=== PATIENT | female | born 1950 | race Asian ===

== ENCOUNTER 2019-03-07 03:55 | Emergency (ER) | payer MEDICARE, OTHER ==
[~2019-03-07] VITALS: Ht 147.3 cm; Wt 65.3 kg
[2019-03-07] MEDS ORDERED: LORA2TAB PO (04:20)
[2019-03-07] MEDS ORDERED: IRBE150T28 PO (04:20)
[2019-03-07] MEDS ORDERED: DULO30CA2 PO (04:20)
[2019-03-07] MEDS ORDERED: CLOP75TA15 PO (04:20)
[2019-03-07] MEDS ORDERED: LEVO25TA9 PO (04:20)
[2019-03-07] MEDS ORDERED: AMLO5TAB9 PO (04:20)
[2019-03-07] MEDS ORDERED: ASPI-605 PO (04:20)
[2019-03-07] MEDS ORDERED: ROSU20TA2 PO (04:20)
[2019-03-07] MEDS ORDERED: PANT40TA4 PO (04:20)
[2019-03-07] MEDS ORDERED: EZET10TA13 PO (04:20)
[2019-03-07] MEDS ORDERED: ATEN50TA PO (04:20)
[2019-03-07 04:35] LABS: BASOPHILS % (AUTO) 0.6 % (0.0-2.0); EOSINOPHILS # (AUTO) 0.2 K/uL (0.0-0.7); EOSINOPHILS % (AUTO) 4.5 % (0.0-7.0); HEMATOCRIT 37.7 % (31.2-41.9); HEMOGLOBIN 12.9 g/dL (10.9-14.3); LYMPHOCYTES # (AUTO) 1.1 K/uL (20.0-40.0); LYMPHOCYTES % (AUTO) 21.4 % (20.5-51.5); MEAN CORPUSCULAR HGB CONC 34 g/dL (32.3-35.6); MEAN CORPUSCULAR VOLUME 90.6 fL (75.5-95.3); MONOCYTES # (AUTO) 0.5 K/uL (2.0-10.0); NEUTROPHILS # (AUTO) 3.2 K/uL (1.8-8.9); NEUTROPHILS % (AUTO) 63.5 % (38.5-71.5); PLATELET COUNT (AUTO) 245 K/uL (179-408); RED BLOOD CELL COUNT(AUTO) 4.16 MIL/uL (3.63-4.92); WHITE BLOOD COUNT (AUTO) 5.1 K/uL (3.8-11.8)
[2019-03-07 04:43] LABS: ALANINE AMINOTRANSFERASE 20 U/L (14-59); ALKALINE PHOSPHATASE 79 U/L (50-136); ASPARTATE AMINOTRANSFERASE 14 U/L (15-37); BILIRUBIN,DIRECT 0.1 mg/dL (0.0-0.2); BILIRUBIN,TOTAL 0.5 mg/dL (0.2-1.0); CARBON DIOXIDE 27 mmol/L (21-32); CHLORIDE 101 mmol/L (98-107); CREATININE 0.7 mg/dL (0.6-1.3); GLUCOSE 124 mg/dL (74-106); POTASSIUM 3.6 mmol/L (3.5-5.1); TOTAL PROTEIN, SERUM 8.1 g/dL (6.4-8.2); UREA NITROGEN, BLOOD 13 mg/dL (7-18)
[2019-03-07 04:47] LABS: ACETAMINOPHEN < 2.0 ug/mL (10-30)
[2019-03-07 04:49] LABS: ETHANOL < 3 MG/DL (0-0)
[2019-03-07 04:51] LABS: THYROID STIMULATING HORMONE 3.795 mIU/mL (0.358-3.740)
--- NOTE | 2019-03-07 05:00 | NUR ---
Nursing Note: Patient placed on hold. Crisis evaluation team notified. Belongs list done. Pt screened by [employer] for safety.
[2019-03-07] MEDS ORDERED: CLONIDINE HCL 0.1 MG TABLET PO ONE (05:15)
[2019-03-07] MEDS ORDERED: CLONIDINE HCL 0.1 MG TABLET ONE (05:27)
[2019-03-07 05:57] LABS: *BILIRUBIN,URIN NEGATIVE (NEGATIVE); *CLARITY,URINE CLEAR (CLEAR); *COLOR,URINE YELLOW (YELLOW); *KETONES,URINE NEGATIVE (NEGATIVE); *UROBILINOGEN,URINE 0.2 E.U./dl (NORMAL); LEUKOCYTE ESTERASE ,URINE NEGATIVE (NEGATIVE); NITRITE, URINE NEGATIVE (NEGATIVE); PH,URINE 6.5 (5.0-8.0); UGLUCOSE NEGATIVE (NEGATIVE)
[2019-03-07 05:58] LABS: *BLOOD, URINE TRACE (NEGATIVE)
--- NOTE | 2019-03-07 06:00 | NUR ---
PATIENT WANDED PER PROTOCOL BY [facility].
[2019-03-07 06:03] LABS: BACTERIA,URINE NONE SEEN /HPF (NONE SEEN); RBC,URINE 0-3 /HPF (0-3); SQUAMOUS EPITHELIAL CELL,UR FEW /HPF (NONE SEEN); WBC,URINE 0-3 /HPF (0-3)
--- NOTE | 2019-03-07 06:30 | NUR ---
Fabricio Rosa LCSW will eval patient.ETA 1HRS.
[2019-03-07 06:34] LABS: *AMPHETAMINE, URINE NEGATIVE (NEGATIVE); *BARBITURATE, URINE NEGATIVE (NEGATIVE); *CANNABINOID, URINE NEGATIVE (NEGATIVE); *COCCAINE, URINE NEGATIVE (NEGATIVE); *OPIATE, URINE NEGATIVE (NEGATIVE); *PHENCYCLIDINE SCREEN,URINE NEGATIVE (NEGATIVE)
--- NOTE | 2019-03-07 07:15 | NUR ---
Received patient sleeping arousable to verbal command AAOX4. vitals hr 71, 98% on RA, 122/72.
--- NOTE | 2019-03-07 07:20 | NUR ---
Nursing Note: Spoke to patients Son and was informed that patients other son is going through a procedure today. Also informed by son that patient had not slept and appeared to be delirous.
--- NOTE | 2019-03-07 08:01 | NUR ---
Crisis team evalutator in the unit to examine patient.
--- NOTE | 2019-03-07 08:20 | NUR ---
A call from pt's son and He was updated and able to to talk to MIKAYLA Rosa and was updated on care plan. Addendum: 03/07/19 at 0824 by ALTON Pt's son's name is Mr. GraceBhavna
--- NOTE | 2019-03-07 08:47 | NUR ---
Pt's son Mr. Grace in and been updated by MIKAYLA Rosa.
--- NOTE | 2019-03-07 09:21 | NUR ---
After been assessed by MIKAYLA Rosa patient will be dcd home to daughter, who is on her way to the facility. Hold broken by Fabricio Rosa. Addendum: 03/07/19 at 0929 by ALTON Pt's daughter Idalmis Coronel.
[2019-03-07 09:39] VITALS: BP 122/72
--- NOTE | 2019-03-07 09:45 | NUR ---
Patient taken home by daughter Idalmis Coronel who also signed dcd documentation. Patient left room ambulatory with steady gait. AAOX3. vitals stable Hr 72 98% RA. 122/74
== END 2019-03-07 09:47 | disposition home or self-care (01) ==
LOC: ER 04:00
DX: Z04.6 Encounter for general psychiatric examination, requested by authority (principal); R45.1 Restlessness and agitation; R45.4 Irritability and anger; E03.9 Hypothyroidism, unspecified; Z79.82 Long term (current) use of aspirin; Z79.899 Other long term (current) drug therapy
CPT/HCPCS: 36415; 71045; 80048; 80076; 80307; 81000; 81001; 84443; 84484; 85025; 85730; 87086; 93005; 99284; G0480 ×2; G0481; 70030-TC; A4663